=== PATIENT | female | born 1955 | race African-American/Black ===

== ENCOUNTER 2017-08-13 07:45 | Emergency (ER) | payer OTHER ==
[~2017-08-13] VITALS: Ht 167.6 cm; Wt 63.5 kg
--- NOTE | 2017-08-13 07:55 | ED CARDIAC/CP/PALPITATIONS ---
History of Present Illness General Chief Complaint: General Adult Stated Complaint: felt choking sinsation Source: patient Exam Limitations: no limitations Vital Signs & Intake/Output Vital Signs & Intake/Output Vital Signs Date Time Temp Pulse Resp B/P B/P Pulse O2 O2 Flow FiO2 Mean Ox Delivery Rate 08/13 1342 98.3 70 16 134/75 98 Room Air 08/13 1136 73 18 136/74 98 Room Air 08/13 0821 98 Room Air 08/13 0748 97.3 87 15 147/77 98 Room Air Room Air Allergies Coded Allergies: Penicillins (PT UNSURE OF REACTION 08/13/17) Reconcile Medications Ibuprofen 800 MG TABLET 1 TAB PO TID PRN PAIN/INFLAMMATION (Reported) Methocarbamol (Robaxin-750) 750 MG TABLET 1 TAB PO AD MUSCLE SPASMS (Reported ) Triage Note: PT TO ED FOR C/C OF TIGHTNESS FEELING AROUND NECK. PT STATES THAT THIS MORNING SHE WAS WOKEN UP OUT OF HER SLEEP WITH THE FEELING THAT "FELT LIKE SOMEONE WAS CHOKING ME." PT DENIES SOB, CP, DIFFICULTY SWALLOWING. DENIES SORE THROAT. HAS BEEN UNDER A LOT OF STRESS LATELY. HANDLING OWN SECRETIONS IN TRIAGE. Triage Nurses Notes Reviewed? yes HPI: Patient was awoken this morning with a choking sensation in her lower throat as well as her upper chest. Patient became very anxious. Patient states that the symptoms last approximately 10 minutes when she woke up. Patient went to bed feeling fine. Patient states that she has been very stressed because of work lately. Patient denies any shortness of breath. There are no aggravating or mitigating factors. There is no radiation. The pain was 8 out of 10 when it was present and is currently 0 out of 10. Patient's other complaint is an achy sensation in her back. Patient states that she fell approximately one week ago and slid down a flight of stairs on her back. At that time she was seen at [place] emergency department and had x-rays and CAT scan was told everything was fine. She rates the pain at a 4 out of 10. Pain increases with movement. There is no radiation. There is no weakness or numbness. There is no incontinence of bowel or bladder. Past History Travel History Traveled to [place] past 21 day No Medical History Any Pertinent Medical History? see below for history Neurological: NONE EENT: NONE Cardiovascular: NONE Respiratory: NONE Gastrointestinal: NONE Hepatic: NONE Renal: NONE Musculoskeletal: NONE Psychiatric: NONE Endocrine: NONE Blood Disorders: NONE Cancer(s): NONE ABRASIVE GRINDER/Reproductive: NONE Surgical History Surgical History: non-contributory Psychosocial History What is your primary language Romanian Tobacco Use: Never used ETOH Use: denies use Illicit Drug Use: denies illicit drug use Family History Hx Contributory? No Review of Systems Review of Systems Constitutional: Reports: no symptoms. EENTM: Reports: no symptoms. Respiratory: Reports: no symptoms. Cardiovascular: Reports: see HPI, chest pain. GI: Reports: no symptoms. Genitourinary: Reports: no symptoms. Musculoskeletal: Reports: see HPI, back pain. Skin: Reports: no symptoms. Neurological/Psychological: Reports: no symptoms. Hematologic/Endocrine: Reports: no symptoms. Immunologic/Allergic: Reports: no symptoms. All Other Systems: Reviewed and Negative Physical Exam Physical Exam General Appearance: well developed/nourished, alert, awake, anxious, mild distress Head: atraumatic, normal appearance Eyes: Bilateral: PERRL, EOMI. Ears, Nose, Throat: normal pharynx, normal ENT inspection, hearing grossly normal Neck: normal inspection, supple, full range of motion Respiratory: normal breath sounds, chest non-tender, no respiratory distress, lungs clear Cardiovascular: regular rate/rhythm, normal peripheral pulses Gastrointestinal: normal bowel sounds, soft, non-tender, no organomegaly Back: normal inspection, normal range of motion, muscle spasm, no vertebral tenderness Extremities: normal inspection, normal capillary refill, normal range of motion, no edema Neurologic/Psych: no motor/sensory deficits, awake, alert, oriented x 3, normal gait, normal mood/affect Skin: intact, normal color, warm/dry Lymphatic: no anterior cervical agnieszka Core Measures ACS in differential dx? Yes CVA/TIA Diagnosis No Sepsis Present: No Sepsis Focused Exam Completed? No Progress Differential Diagnosis: AMI, costochondritis, hyperthyroid, musculoskeletal pain , myocarditis, pericarditis, pneumonia, pneumothorax Plan of Care: Orders Procedure Date/time Status TROPONIN LEVEL 08/13 1100 Complete EKG 08/13 1100 Active Add-on Test (ER Only) 08/13 0923 Active URINE DRUGS OF ABUSE 08/13 0923 Complete ED CRISIS PSYCH CONSULT 08/13 0921 Active ETHANOL 08/13 0811 Complete Telemetry/Mold Sheet Cleaner 08/13 0755 Active TROPONIN LEVEL 04/22 0755 Complete COMPREHENSIVE METABOLIC PANEL 08/13 754 Complete CBC WITHOUT DIFFERENTIAL 08/13 754 Complete EKG 08/13 754 Active Laboratory Tests 08/13/17 1210: Troponin I < 0.01 08/13/17 1011: Urine Opiates Screen < 100, Methadone Screen < 40, Barbiturate Screen < 60, Ur Phencyclidine Scrn < 6.00, Amphetamines Screen < 100, U Benzodiazepines Scrn < 85, Urine Cocaine Screen < 50, Urine Cannabis Screen < 5.00 08/13/17 0811: Anion Gap 12, Estimated GFR > 60, BUN/Creatinine Ratio 14.3, Glucose 105 H, Calcium 9.6, Total Bilirubin 0.5, AST 23, ALT 27, Alkaline Phosphatase 77, Troponin I < 0.01, Total Protein 7.4, Albumin 4.0, Globulin 3.4, Albumin/ Globulin Ratio 1.2, CBC w Diff NO MAN DIFF REQ, RBC 4.46, MCV 89.4, MCH 30.8, MCHC 34.5, RDW 13.9, MPV 9.6, Gran % 63.0, Lymphocytes % 30.4, Monocytes % 5.3, Eosinophils % 1.1, Basophils % 0.2, Absolute Granulocytes 3.0, Absolute Lymphocytes 1.5, Absolute Monocytes 0.3, Absolute Eosinophils 0.1, Absolute Basophils 0, Serum Alcohol < 10.0 Diagnostic Imaging: Viewed by Me: Radiology Read. Discussed w/RAD: Radiology Read. CXR Impression: PATIENT: ABHIJIT GARCIA PRESENT AGE: 62 PATIENT ACCOUNT NO: [id number] : 57 LOCATION: [facility] ORDERING PHYSICIAN: Ephraim Atkinson MD SERVICE DATE: 08/13/17 EXAM TYPE: RAD - XRY- PORTABLE CHEST XRAY EXAMINATION: XR PORTABLE CHEST CLINICAL INFORMATION: Chest pain. COMPARISON: None TECHNIQUE: Portable frontal view of the chest was obtained. FINDINGS: No significant abnormality is noted involving the heart, lungs, mediastinum, bony thorax or soft tissues. IMPRESSION: No acute cardiopulmonary findings. DICTATED BY: Malcom Alfaro MD DATE/TIME DICTATED:915 PT SKILLED:ANNABELLA DATE/TIME TRANSCRIBED:08/13/17915 CONFIDENTIAL, DO NOT COPY WITHOUT APPROPRIATE AUTHORIZATION. <Electronically signed in Other Vendor System> SIGNED BY: Malcom Alfaro MD 08/13/17 0921 Initial ED EKG: NSR, no ST T wave changes Repeat EKG: unchanged Rhythm Strip: normal sinus rhythm Comments: Patient updated on lab results. Questions and answered. Patient states that she has been feeling very stressed because of work lately and doesn't know what to do. Patient is requested to talk to somebody about her stress. A crisis consult has been ordered. Departure Departure Disposition: HOME OR SELF CARE Condition: Stable Clinical Impression Primary Impression: Chest pain Secondary Impressions: Anxiety Referrals: Deloris KRAUSE PHD,Lavon Skinner Additional Instructions: FOLLOW UP [facility]UTH DR. CALL FROM CARDIOLOGY FOR FURTHER TESTING FOLLOW UP WITH YOUR APPOINTMENT WITH OUT PATIENT TALKED ABOUT WITH THE COMPOUND COATING MACHINE OFFBEARER RETURN IF ANY SYMPTOMS WORSEN OR FOR ANY CONCERNS Departure Forms: Customer Survey General Discharge Information Critical Care Note Critical Care Note Critical Care Time: non-applicable
[2017-08-13 08:23] LABS: ABSOLUTE BASOPHIL COUNT 0 /CUMM (0.0-0.2); ABSOLUTE EOSINOPHIL COUNT 0.1 /CUMM (0.0-0.7); ABSOLUTE LYMPH COUNT 1.5 /CUMM (1.2-3.4); ABSOLUTE MONOCYTE COUNT 0.3 /CUMM (0.10-0.60); BASOPHIL % 0.2 % (0.0-2.0); EOSINOPHIL % 1.1 % (0-5); HEMATOCRIT 39.9 % (37-47); MEAN CORPUSCULAR HGB 30.8 PG (27.0-31.0); MEAN CORPUSCULAR HGB CONC 34.5 G/DL (33.0-37.0); MEAN CORPUSCULAR VOLUME 89.4 FL (81.0-99.0); MEAN PLATELET VOLUME 9.6 FL (7.4-10.4); PLATELET COUNT 193 /CUMM (130-400); RBC DISTRIBUTION WIDTH 13.9 % (11.5-14.5); RED BLOOD CELL CT 4.46 /CUMM (4.20-5.40); WHITE BLOOD CELL COUNT 4.8 /CUMM (4.8-10.8)
--- NOTE | 2017-08-13 09:21 | RADIOLOGY REPORT ---
EXAMINATION: XR PORTABLE CHEST CLINICAL INFORMATION: Chest pain. COMPARISON: None TECHNIQUE: Portable frontal view of the chest was obtained. FINDINGS: No significant abnormality is noted involving the heart, lungs, mediastinum, bony thorax or soft tissues. IMPRESSION: No acute cardiopulmonary findings.
--- NOTE | 2017-08-13 12:10 | ED PSYCH CRISIS CONSULTATION ---
See Addendum Crisis Consult Basic Assessment Date of Consult: 08/13/17 Responsible Person/Accompanied By: Self Insurance Authorization: Insurance #1: Insurance name: [employer] C&A Phone number: Policy number: [id number] Group number: Authorization number: ED Provider: Patient's ED Provider: China KRAUSE,Ephraim Flores Primary Care Physician: Patient's PCP: Roxy Arshad MD PCP's Chief Complaint: General Adult Patient's Quote: "I have been so stressed at work" Present Illness: Pt is a 62y.o. W/AA/F who brought herself to the hospital reporting feelings of "tightness around her neck" as if she was choking. She also acknowledged falling down the stairs 2 days ago and receiving medical evaluation and treatment at [facility]. Upon ED medical assessment today, pt also reported increased stress at work and requested to speak with someone. Medically cleared and referred to crisis for a consult. 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 Pt reports she never received proper training for her position as her front line supervisor went out on maternity leave shortly after pt transferred to the department a year ago. Now that her front line supervisor is back, pt feels as if her front line supervisor is "bullying" her, as her front line supervisor has been belittling her and complaining about pt's work despite pt feeling as if she was never actually trained. Additionally, pt feels targeted as she had helped her front line supervisor get into the PhD program at the [employer] for which her front line supervisor was ultimately not able to handle at the time. Pt was also in this program and says her front line supervisor had asked her to drop out as well until she was able to go back so that they could do it together. Pt refused and feels as if her front line supervisor has been tormenting her because of this. Pt has since dropped out of the program and hopes to return in the fall. She reports poor sleep, poor appetite, and poor concentration due to the stress at her job. Pt denies SI/HI/ AH/VH or any history of self-injurious behavior or thoughts to harm herself or others. She denies any substance use. Pt denies any history of psychiatric treatment. She currently lives with her 17y.o. daughter. She a total of two living children, and one grandchild. She adds that she has 3 children, two of whom from an "illness" in 1977 and 1993, and one who was murdered in 2003. Pt adds that her and her mother in 2011. She states that she has struggled with a lot in her life and has never felt as anxious as she has now and is struggling to find out why the stress at work is bothering her so much. She is of [employer] syn[employer] and says she finds strength in her synagogue and prays daily. She says she has support from her 4 siblings and has one friend from graduate school whom she talks to daily. She also enjoys mediation and gardening. She is hoping to feel better so she can start planning her daughters graduation green party. Pt is interested in OP treatment at [place] as she feels comfortable here and has always had a pleasant experience. Case discussed with Dr. Inman who agrees that pt is not in need of IP treatment a this time and would benefit from OP treatment. An appointment at [facility] [address] was accepted by pt with an appointment date of 08/15/17 at 10am. Patient's Address: [address] [place] [address] Other Phone Number: Who Do You Live With? Daughter (17 year old daughter) Family/Informants Interviewed: no family/collateral ID'd Allergies - Coded Allergies: Penicillins (PT UNSURE OF REACTION 08/13/17) Laboratory Results: Laboratory Tests 08/13/17 1210: Troponin I Pending 08/13/17 1011: Urine Opiates Screen < 100, Methadone Screen < 40, Barbiturate Screen < 60, Ur Phencyclidine Scrn < 6.00, Amphetamines Screen < 100, U Benzodiazepines Scrn < 85, Urine Cocaine Screen < 50, Urine Cannabis Screen < 5.00 08/13/17 0811: Anion Gap 12, Estimated GFR > 60, BUN/Creatinine Ratio 14.3, Glucose 105 H, Calcium 9.6, Total Bilirubin 0.5, AST 23, ALT 27, Alkaline Phosphatase 77, Troponin I < 0.01, Total Protein 7.4, Albumin 4.0, Globulin 3.4, Albumin/ Globulin Ratio 1.2, CBC w Diff NO MAN DIFF REQ, RBC 4.46, MCV 89.4, MCH 30.8, MCHC 34.5, RDW 13.9, MPV 9.6, Gran % 63.0, Lymphocytes % 30.4, Monocytes % 5.3, Eosinophils % 1.1, Basophils % 0.2, Absolute Granulocytes 3.0, Absolute Lymphocytes 1.5, Absolute Monocytes 0.3, Absolute Eosinophils 0.1, Absolute Basophils 0, Serum Alcohol < 10.0 Past History Past Medical History Neurological: NONE EENT: NONE Cardiovascular: NONE Respiratory: NONE Gastrointestinal: NONE Hepatic: NONE Renal: NONE Musculoskeletal: NONE Psychiatric: anxiety Endocrine: NONE Blood Disorders: NONE Cancer(s): NONE ACCOUNTING ASSISTANT/Reproductive: NONE Past Surgical History Surgical History: non-contributory Psychosocial History Strengths/Capabilities: Engaged in hobbies, engaged in work, primary supports, synagogue, responsibility for child at home, optimistic Psychiatric Treatment History Psych Treatment Psychiatric Treatment No Inpatient Treatment No Outpatient Treatment No Diagnosis by History: Denies Substance Use/Abuse History Drug Use/Abuse Substances Used/Abused No First Use N/A Last Used N/A How much used/taken N/A How often N/A For how long N/A Route of use N/A Substance Abuse Treatment Substance Abuse Treatment Past Substance Abuse [place] No (N/A) Inpatient Treatment No (N/A) Outpatient Treatment No (N/A) Location of Treatment N/A Reason for Treatment N/A Dates of Treatment N/A Response to Treatment N/A Current Mental Status Mental Status Orientation: Current situation, Person, Place, Person, Place, Situation Affect: WNL Speech: WNL Neuro-vegetative: Appetite Decreased, Concentration Poor, Energy Decreased, Sleep Disturbance, WNL Appearance Appearance- Dress/Hygiene: Appropriate, positive eye contact, wearing hijab Behaviors Thought Process: WNL Thought Content: WNL Memory: WNL Insight: WNL SI/HI Risk Assessment Past Suicidal Ideation/Attempts No Current Suicidal Ideation/Att No Past Homicidal Ideation/Att: No Current Homicidal Ideation/Attempts No Degree of Intent: None Danger To: Others (N/A) Gravely Disabled: Inability (N/A) Risk Factors: high anxiety/distress Lethality Ratin (mild) PTSD Checklist PTSD Score: PTSD Score: Response Value Disturbing memories,thoughts,images of stressful experience? Not at all 1 Disturbing dreams of stressful experience from past? Not at all 1 Suddenly acting/feeling as if reliving stressful experience? Not at all 1 Unpleasant feeling when reminded of stressful experience? Not at all 1 Physical reactions when reminded of stressful experience? A little bit 2 Avoid thinking/talking of stressful exp. to avoid reactions? Not at all 1 Avoid activities/situations that remind of stressful exp.? A little bit 2 Trouble remembering important parts of stressful experience? Not at all 1 Loss of interest in things that you used to enjoy? A little bit 2 Feeling distant or cut off from other people? A little bit 2 Feeling emotionally numb/unable to love those close to you? Not at all 1 Feeling as if your future will somehow be cut short? Not at all 1 Trouble falling or staying asleep? A little bit 2 Feeling irritable or having angry outbursts? A little bit 2 Having difficulty concentrating? A little bit 2 Being super alert or watchful on guard? Not at all 1 Feeling jumpy or easily startled? Not at all 1 Total 24 DSM5/PS Stressors/Medical Prob Diagnosis' (DSM 5, Stressors, Medical): 308.3 Acute Stress Disorder Departure Disposition Psych Medical Clearance Date: 08/13/17 Psychiatrist Consulted: Dr. Inman Date Disposition Established: 08/13/17 Time Disposition Established: 1247 Plan for Disposition - Modality: Outpatient (08/15/17 at 10am) Facility: [facility] (08/15/17 at 10am) Follow-up Appt Date: 08/15/17 Follow-Up Appt Time: 1000 Contact: [address] [place] [address] Rationale for Disposition: Pt has anxiety related to stress at her current place of employment. She is not suicidal/homicidal/or presenting with symptoms of psychosis. Pt does not require inpatient level of care at this time. She is interested in OP treatment at [facility]. Appointment provided for 08/15/17 at 10am. Pt agreeable and looking forward to her appointment. Dr. Inman concurs with discharge plan. Referrals Jeancarlos KRAUSE,Roxy (PCP/Family)
[2017-08-13] MEDS ORDERED: IBUPROFEN800 M1 PO (12:53)
[2017-08-13] MEDS ORDERED: ROBAXIN-750750 M1 PO (12:53)
[2017-08-13 13:42] VITALS: BP 134/75
== END 2017-08-13 13:43 ==
LOC: ERH 07:45
PROVIDERS: Emergency Medicine
DX: R07.9 Chest pain, unspecified (principal); F41.9 Anxiety disorder, unspecified
CPT/HCPCS: 71045; 80307; 93005; 93010; G0463; G0480; J1885